=== PATIENT | female | born 1970 | race Caucasian/White ===

== ENCOUNTER → 2016-10-23 | Outpatient (CLI) | payer OTHER ==
[~2016-10-23] MED LIST: BARI1CHW PO; BIOT1TAB PO; FERRTASA PO; LEVO137T2 PO; MOTR200T44 PO; NORC5TAB PO; VITA-112 PO; VITA500C10 PO
== END ==
LOC: M SMT 15:35
PROVIDERS: ATTEND Nuclear Medicine
DX: C73 Malignant neoplasm of thyroid gland (principal)

== ENCOUNTER → 2016-10-23 | Outpatient (CLI) | payer OTHER ==
[2016-10-23 18:43] LABS: FREE T4 1.11 NG/DL (0.76-1.46)
== END ==
LOC: M SMT 15:38
PROVIDERS: ATTEND Internal Medicine Endocrinology, Diabetes & Metabolism
DX: E89.0 Postprocedural hypothyroidism (principal)

== ENCOUNTER → 2016-11-09 | Outpatient (REF) | payer OTHER ==
[2016-11-09 13:36] LABS: PERCENT SATURATION 25.4 % (13.2-37.4)
== END ==
LOC: M LAB REF 12:07
PROVIDERS: ATTEND Internal Medicine
DX: Z98.84 Bariatric surgery status (principal); D50.9 Iron deficiency anemia, unspecified

== ENCOUNTER → 2016-11-27 | Outpatient (CLI) | payer OTHER ==
[2016-11-27 19:20] LABS: EOS % 0.7 % (0.0-3.0); LARGE UNSTAINED CELL # 0.2 K/mm3 (0.0-0.4); LARGE UNSTAINED CELL % 2.7 % (0.0-4.0); LYMPH # 1.9 K/mm3 (1.5-4.5); MEAN CORPUSCULAR HEMOGLOBIN 30.1 pg (27.0-33.0); MEAN CORPUSCULAR HGB CONC 32.5 g/dl (32.0-36.5); MEAN CORPUSCULAR VOLUME 92.5 fl (80.0-96.0); MONO # 0.3 K/mm3 (0.0-0.8); MONO % 4.8 % (0.0-5.0); NEUTROPHILS # 3.1 K/mm3 (1.8-7.7); NEUTROPHILS % 55.7 % (36.0-66.0); PLATELET COUNT, AUTOMATED 279 k/mm3 (150-450); RED CELL DISTRIBUTION WIDTH 13.1 % (11.5-14.5); WHITE BLOOD COUNT 5.5 K/mm3 (4.0-10.0)
[2016-11-27 19:34] LABS: VITAMIN B12 LEVEL 331 PG/ML (247-911)
[2016-11-27 20:22] LABS: ALBUMIN 3.9 GM/DL (3.2-5.2); ALBUMIN/GLOBULIN RATIO 1.26 (1.00-1.93); ALKALINE PHOSPHATASE 138 U/L (45-117); ALT/SGPT 31 U/L (12-78); ANION GAP 6 MEQ/L (8-16); AST/SGOT 27 U/L (15-37); BILIRUBIN,TOTAL 0.7 MG/DL (0.2-1.0); BLOOD UREA NITROGEN 12 MG/DL (7-18); CALCIUM LEVEL 9.1 MG/DL (8.5-10.1); CARBON DIOXIDE LEVEL 29 MEQ/L (21-32); CHLORIDE LEVEL 105 MEQ/L (98-107); CREATININE FOR GFR 0.74 MG/DL (0.55-1.02); FERRITIN 25 NG/ML (8-252); GLOMERULAR FILTRATION RATE > 60.0 (>58); GLUCOSE, FASTING 93 MG/DL (70-105); MAGNESIUM LEVEL 1.9 MG/DL (1.8-2.4); PHOSPHORUS LEVEL 3.2 MG/DL (2.5-4.9); POTASSIUM SERUM 4.1 MEQ/L (3.5-5.1); SODIUM LEVEL 140 MEQ/L (136-145)
[2016-12-01 11:45] LABS: PRETREATED FOLATE FOR RBCFOL 12.9 NG/ML
== END ==
LOC: M SMT 15:36
PROVIDERS: ATTEND Surgery
DX: K91.2 Postsurgical malabsorption, not elsewhere classified (principal); E55.9 Vitamin D deficiency, unspecified; Z98.84 Bariatric surgery status

== ENCOUNTER → 2017-01-15 | Outpatient (REF) | payer OTHER ==
[~2017-01-15] MED LIST changes: +NORC1TAB4 PO; -NORC5TAB PO
== END ==
LOC: EEVIPCON 12:33 → M LAB REF 12:33
PROVIDERS: ATTEND Internal Medicine
DX: T81.4XXA Infection following a procedure, initial encounter (principal); X58.XXXA Exposure to other specified factors, initial encounter; Y92.89 Other specified places as the place of occurrence of the external cause; Y93.89 Activity, other specified; Y99.8 Other external cause status

== ENCOUNTER → 2017-08-26 | Outpatient (REF) | payer OTHER | LOC: M LAB REF 16:26 | PROVIDERS: ATTEND Physician Assistant | DX: B37.3 Candidiasis of vulva and vagina (principal) ==

== ENCOUNTER → 2017-10-01 | Outpatient (REF) | payer OTHER ==
[2017-10-01 13:31] LABS: FREE T3 2.3 PG/ML (2.2-4.0); IRON (FE) 59 UG/DL (50-170); PERCENT SATURATION 17.5 % (13.2-45.0); TOTAL IRON BINDING CAPACITY 338 UG/DL (250-450)
[2017-10-01 16:34] LABS: VITAMIN B12 LEVEL 507 PG/ML (247-911)
== END ==
LOC: M LAB REF 12:32
DX: E03.9 Hypothyroidism, unspecified (principal); D50.9 Iron deficiency anemia, unspecified

== ENCOUNTER → 2018-03-04 | Outpatient (REF) | payer OTHER ==
[2018-03-04 14:03] LABS: IRON (FE) 89 UG/DL (50-170); PERCENT SATURATION 21.1 % (13.2-45.0); TOTAL IRON BINDING CAPACITY 422 UG/DL (250-450)
[2018-03-04 14:27] LABS: TOTAL T3 75.3 NG/DL (60.0-181.0)
[2018-03-04 14:28] LABS: VITAMIN B12 LEVEL 409 PG/ML (247-911)
== END ==
LOC: M LAB REF 13:32
DX: D50.9 Iron deficiency anemia, unspecified (principal)

== ENCOUNTER → 2019-03-16 | Outpatient (REF) | payer OTHER ==
[~2019-03-16] MED LIST changes: -NORC1TAB4 PO; +NORC1TAB7 PO
[2019-03-17 12:54] LABS: PERCENT SATURATION 10.3 % (13.2-45.0)
[2019-03-17 13:07] LABS: TOTAL T3 88.7 NG/DL (60.0-181.0)
== END ==
LOC: M LAB REF 12:22
PROVIDERS: ATTEND Internal Medicine
DX: E07.9 Disorder of thyroid, unspecified (principal); D50.9 Iron deficiency anemia, unspecified

== ENCOUNTER → 2019-06-02 | Outpatient (REF) | payer OTHER | LOC: M LAB REF 16:43 | PROVIDERS: ATTEND Internal Medicine | DX: E89.0 Postprocedural hypothyroidism (principal) ==

== ENCOUNTER → 2019-08-25 | Outpatient (REF) | payer OTHER ==
[2019-08-25 17:50] LABS: PERCENT SATURATION 40.2 % (13.2-45.0)
== END ==
LOC: M LAB REF 16:21
PROVIDERS: ATTEND Internal Medicine
DX: D50.9 Iron deficiency anemia, unspecified (principal)

== ENCOUNTER → 2020-01-26 | Outpatient (REF) | payer OTHER | LOC: M LAB REF 12:14 | PROVIDERS: ATTEND Internal Medicine | DX: E89.0 Postprocedural hypothyroidism (principal); Z85.850 Personal history of malignant neoplasm of thyroid ==

== ENCOUNTER → 2020-07-10 | Outpatient (REF) | payer OTHER ==
[2020-07-10 17:54] LABS: PERCENT SATURATION 25.9 % (13.2-45.0)
== END ==
LOC: M LAB REF 16:26
PROVIDERS: ATTEND Internal Medicine
DX: D50.9 Iron deficiency anemia, unspecified (principal)

== ENCOUNTER → 2021-03-10 | Outpatient (REF) | payer OTHER ==
[2021-03-10 18:51] LABS: PERCENT SATURATION 17.2 % (13.2-45.0)
== END ==
LOC: M LAB REF 16:20
PROVIDERS: ATTEND Internal Medicine
DX: D50.9 Iron deficiency anemia, unspecified (principal); E89.0 Postprocedural hypothyroidism

== ENCOUNTER → 2021-08-27 | Outpatient (REF) | payer OTHER | LOC: M LAB REF 12:44 | PROVIDERS: ATTEND Physician Assistant | DX: J02.9 Acute pharyngitis, unspecified (principal) ==

== ENCOUNTER → 2023-01-28 | Outpatient (REF) | payer OTHER ==
[2023-01-28 17:09] LABS: PERCENT SATURATION 16.7 % (13.2-45.0)
[2023-01-28 17:11] LABS: FERRITIN 7.2 NG/ML (7.3-270.7)
== END ==
LOC: M LAB REF 16:12
PROVIDERS: ATTEND Internal Medicine
DX: D50.9 Iron deficiency anemia, unspecified (principal); Z98.84 Bariatric surgery status

== ENCOUNTER → 2023-02-22 | Outpatient (REF) | payer OTHER ==
[2023-02-22 13:05] LABS: PERCENT SATURATION 19.5 % (13.2-45.0)
[2023-02-22 13:08] LABS: FERRITIN 7.2 NG/ML (7.3-270.7)
== END ==
LOC: M LAB REF 12:07
PROVIDERS: ATTEND Internal Medicine
DX: D50.9 Iron deficiency anemia, unspecified (principal); Z98.84 Bariatric surgery status

== ENCOUNTER 2023-08-11 13:36 | Outpatient (CLI) | payer OTHER ==
[~2023-08-11] VITALS: Ht 172.7 cm; Wt 79.0 kg
[~2023-08-11 13:36] MED LIST changes: +ALBUTEROL SULFATE 2.5MG/0.5ML INH NEB SOLN INH PRN; +EPINEPHrine INJ 1 MG/ML 1ML AMP IM PRN; +diphenhydrAMINE 50MG/ML VIAL IV PRN; +methylPREDNISolone 125MG 2ML VIAL IV PRN
[2023-08-11 14:00] VITALS: BP 136/60; O2SAT 99
[2023-08-11] MEDS ORDERED: FERRIC CARBOXYMALTOSE INJ 750 MG in NS 250 ML (>50kg) IV ONE ×3 (14:00)
[2023-08-11] MEDS ORDERED: NS 1,000 ML IV SCH (14:00)
[2023-08-11 16:12] VITALS: BP 104/58; O2SAT 97
== END 2023-08-11 16:15 ==
LOC: M INFU 13:36
PROVIDERS: ATTEND Internal Medicine
DX: D50.9 Iron deficiency anemia, unspecified (principal)
CPT/HCPCS: 96365; J1439

== ENCOUNTER 2023-08-18 12:45 | Outpatient (CLI) | payer OTHER ==
[~2023-08-18] VITALS: Ht 172.7 cm; Wt 83.2 kg
[2023-08-18 12:45] VITALS: BP 130/63; O2SAT 100
[2023-08-18] MEDS ORDERED: FERRIC CARBOXYMALTOSE INJ 750 MG in NS 250 ML (>50kg) IV ONE ×3 (13:10)
[2023-08-18] MEDS ORDERED: NS 1,000 ML IV SCH (13:10)
[2023-08-18 14:30] VITALS: BP 118/63; O2SAT 100
== END 2023-08-18 14:35 | disposition home or self-care (01) ==
LOC: M INFU 12:45
PROVIDERS: ATTEND Internal Medicine
DX: D50.9 Iron deficiency anemia, unspecified (principal)
CPT/HCPCS: 96365; J1439

== ENCOUNTER → 2023-10-08 | Outpatient (REF) | payer OTHER ==
[~2023-10-08] MED LIST changes: -ALBUTEROL SULFATE 2.5MG/0.5ML INH NEB SOLN INH PRN; +BARI1CAP PO; -EPINEPHrine INJ 1 MG/ML 1ML AMP IM PRN; +GABA-282 PO; +PROG1CAP8 PO; +SYNT125T PO; -diphenhydrAMINE 50MG/ML VIAL IV PRN; -methylPREDNISolone 125MG 2ML VIAL IV PRN
[2023-10-08 13:40] LABS: FOLLICLE STIMULATING HORMONE 50.9 mIU/ML; LUTEINIZING HORMONE 28.9 mIU/ML; PROGESTERONE 1.62 NG/ML
[2023-10-08 13:41] LABS: ESTRADIOL 104.3 PG/ML
[2023-10-09 15:11] LABS: TESTOSTERONE FREE (DIRECT) 1.1 pg/mL (0.0-4.2)
== END ==
LOC: M LAB REF 12:19
PROVIDERS: ATTEND Internal Medicine
DX: N95.1 Menopausal and female climacteric states (principal); E34.9 Endocrine disorder, unspecified; F52.0 Hypoactive sexual desire disorder

== ENCOUNTER 2023-10-18 07:42 | Day surgery (SDC) | payer OTHER ==
[~2023-10-18] VITALS: Ht 174 cm; Wt 83.0 kg
[~2023-10-18 07:42] MED LIST changes: +NS 1,000 ML IV ONE
[2023-10-18] MEDS ORDERED: propofoL 200 MG/20 ML VIAL As Ordered ONE (08:50)
[2023-10-18] MEDS ORDERED: LIDOCAINE 2% 100MG/5ML SDV (FOR ANES.) As Ordered ONE (08:50)
[2023-10-18 08:56] VITALS: TEMP 96.8
[2023-10-18 09:15] VITALS: BP 109/59; O2SAT 99
== END 2023-10-18 09:24 | disposition home or self-care (01) ==
LOC: M OPP 07:42
PROVIDERS: ATTEND Internal Medicine Gastroenterology
DX: Z12.11 Encounter for screening for malignant neoplasm of colon (principal); G47.30 Sleep apnea, unspecified; Z98.84 Bariatric surgery status; Z79.890 Hormone replacement therapy; Z79.891 Long term (current) use of opiate analgesic

== ENCOUNTER → 2023-12-05 | Outpatient (REF) | payer OTHER ==
[~2023-12-05] MED LIST changes: -NS 1,000 ML IV ONE
== END ==
LOC: M LAB REF 09:15
PROVIDERS: ATTEND Registered Nurse
DX: N39.0 Urinary tract infection, site not specified (principal); B96.20 Unspecified Escherichia coli [E. coli] as the cause of diseases classified elsewhere

== ENCOUNTER → 2023-12-10 | Outpatient (REF) | payer OTHER ==
[2023-12-10 12:02] LABS: ESTRADIOL 150.5 PG/ML; FERRITIN 186.9 NG/ML (7.3-270.7)
[2023-12-10 12:03] LABS: FOLLICLE STIMULATING HORMONE 10.6 mIU/ML; LUTEINIZING HORMONE 10.2 mIU/ML; PROGESTERONE 8.68 NG/ML
[2023-12-11 13:07] LABS: TESTOSTERONE FREE (DIRECT) 1.8 pg/mL (0.0-4.2)
== END ==
LOC: M LAB REF 11:34
PROVIDERS: ATTEND Internal Medicine
DX: D50.9 Iron deficiency anemia, unspecified (principal); N95.1 Menopausal and female climacteric states; F52.0 Hypoactive sexual desire disorder; E34.9 Endocrine disorder, unspecified

== ENCOUNTER → 2024-02-02 | Outpatient (REF) | payer OTHER ==
[2024-02-02 14:42] LABS: PERCENT SATURATION 25.3 % (13.2-45.0)
[2024-02-02 14:43] LABS: FERRITIN 100.7 NG/ML (7.3-270.7)
== END ==
LOC: M LAB REF 11:51
PROVIDERS: ATTEND Internal Medicine
DX: D50.9 Iron deficiency anemia, unspecified (principal)

== ENCOUNTER 2024-02-27 17:12 | Emergency (ER) | payer OTHER ==
[~2024-02-27] VITALS: Ht 172.7 cm; Wt 84.1 kg
[2024-02-27 19:31] LABS: APPEARANCE, URINE CLEAR (CLEAR); BACTERIA, URINE AUTO 1+ (NEGATIVE); BILIRUBIN, URINE AUTO NEGATIVE (NEGATIVE); BLOOD, URINE BLOOD NEGATIVE (NEGATIVE); COLOR, URINE YELLOW (YELLOW); GLUCOSE, URINE (UA) AUTO NEGATIVE (NEGATIVE); KETONE, URINE AUTO TRACE mg/dL (NEGATIVE); LEUKOCYTE ESTERASE, URINE AUTO NEGATIVE (NEGATIVE); MUCUS, URINE SMALL (NEGATIVE); NITRITE, URINE AUTO POSITIVE (NEGATIVE); PROTEIN, URINE AUTO NEGATIVE (NEGATIVE); RBC, URINE AUTO 0 /HPF (0-3); SPECIFIC GRAVITY URINE AUTO 1.005 (1.002-1.035); SQUAMOUS EPITHELIAL CELL UR AU 1 /HPF (0-6); UROBILINOGEN, URINE AUTO 0.2 mg/dL (0.0-2.0); WBC, URINE AUTO 2 /HPF (0-3)
[2024-02-27 20:57] VITALS: BP 115/59; TEMP 98.3; O2SAT 100
[2024-02-27] MEDS ORDERED: METH-1165 PO (20:58)
[2024-02-27] MEDS: methocarbamoL 750 MG TAB PO ONE (21:01)
== END 2024-02-27 21:06 | disposition home or self-care (01) ==
LOC: M ED 17:12
DX: S62.645A Nondisplaced fracture of proximal phalanx of left ring finger, initial encounter for closed fracture (principal); S23.3XXA Sprain of ligaments of thoracic spine, initial encounter; S33.5XXA Sprain of ligaments of lumbar spine, initial encounter; S30.0XXA Contusion of lower back and pelvis, initial encounter; V80.010A Animal-rider injured by fall from or being thrown from horse in noncollision accident, initial encounter; Y92.009 Unspecified place in unspecified non-institutional (private) residence as the place of occurrence of the external cause; Y93.9 Activity, unspecified; Y99.9 Unspecified external cause status; E03.9 Hypothyroidism, unspecified; Z79.899 Other long term (current) drug therapy

== ENCOUNTER → 2024-09-25 | Outpatient (REF) | payer OTHER ==
[~2024-09-25] MED LIST changes: +GABA-1172 PO; -GABA-282 PO; +METH-1165 PO
[2024-09-25 13:03] LABS: PERCENT SATURATION 33.6 % (13.2-45.0)
[2024-09-25 13:04] LABS: FERRITIN 57.6 NG/ML (7.3-270.7)
== END ==
LOC: M LAB REF 12:13
PROVIDERS: ATTEND Internal Medicine
DX: D50.9 Iron deficiency anemia, unspecified (principal)

== ENCOUNTER → 2025-01-18 | Outpatient (REF) | payer OTHER ==
[2025-01-18 19:00] LABS: FERRITIN 56.4 NG/ML (7.3-270.7)
[2025-01-18 19:15] LABS: PERCENT SATURATION 18.1 % (13.2-45.0)
== END ==
LOC: M LAB REF 17:37
PROVIDERS: ATTEND Internal Medicine
DX: D50.9 Iron deficiency anemia, unspecified (principal)

== ENCOUNTER → 2025-04-18 | Outpatient (CLI) | payer OTHER | LOC: M WUC 09:39 | PROVIDERS: ATTEND Student in an Organized Health Care Education/Training Program | DX: M25.531 Pain in right wrist (principal); M19.031 Primary osteoarthritis, right wrist ==